=== PATIENT | female | born 1990 | race Caucasian/White ===

== ENCOUNTER 2016-11-28 08:00 | Inpatient (IN) ==
[2016-11-28 09:08] LABS: Basophils % 0.2 %; Eosinophils # 0.1 K/mcL (0.0-0.6); Eosinophils % 0.6 %; Hematocrit 39.3 % (35.3-44.9); Hemoglobin 12.9 g/dL (11.5-15.4); Immature Granulocytes % 0.7 % (0-4); Lymphocytes # 2.3 K/mcL (0.6-4.6); Lymphocytes % 19.1 %; Mean Corpuscular HGB Conc 32.8 g/dL (31.6-35.5); Mean Corpuscular Hemoglobin 29.7 pg (28.0-33.3); Mean Corpuscular Volume 90.3 fL (83.0-100.0); Mean Platelet Volume 10.2 fL (9.4-12.4); Monocytes # 0.8 K/mcL (0.0-1.3); Monocytes % 6.4 %; Platelet Count 334 K/mcL (140-400); Red Blood Count 4.35 M/mcL (3.82-4.97); Red Cell Distribution Width 13.3 % (11.5-14.5)
[2016-11-28] MEDS ORDERED: Ringers Solution, Lactated 1,000 ML ONE (09:21)
[2016-11-28] MEDS ORDERED: Naloxone 0.4 MG/ML INJ IVP PRN (09:21)
[2016-11-28] MEDS ORDERED: Famotidine 20 MG/2 ML VIAL IVP PRN (09:21)
[2016-11-28] MEDS ORDERED: Ondansetron 4 MG/2 ML VIAL IVP PRN (09:21)
[2016-11-28] MEDS ORDERED: Ringers Solution, Lactated 1,000 ML IVC SCH (09:30)
[2016-11-28] MEDS ORDERED: miSOPROStol 100 MCG TABLET PO SCH (09:45)
--- NOTE | 2016-11-28 10:54 | Anesthesia Evaluation PreOp ---
Date of Encounter: 11/28/16 Time of Encounter: 10:52 - Past History Planned Operation: INES Cardiac History: Denies any Significant Hx Pulmonary History: Denies Any Significant HX POLISHER EYEGLASS FRAMES History: Denies Any Significant HX Other Medical History: Denies Any Significant HX Anesthesia History: No Prior Anesthetic Complications (no complications w/ previous INES; never had any procedure general anesthesia; denies family h/o anesthesia complications) : Yes Test: Positive Alcohol Use: none Drug use: none Medications and Allergies Vitamins 1 tab PO DAILY 11/28/16 [History] Allergies No Known Allergies Allergy (Verified 11/28/16 08:49) - Meds/Allergy Pre-op Review Medications Reviewed: Yes Allergies Reviewed: Yes Beta Blockers on Current Med List: No Anesthesia Results - Labs 11/28/16 08:37 Anesthesia Exam 132/82, HR 88 Height: 1.65m Weight: 91kg NPO (# of Hours): solids NPO since 0700 Pain Scale: 0 Pain Scale Used: Numeric (1 - 10) - HEENT Pupil (Motor): Pupils equal Mallampati: II Teeth: Normal Oral Opening: Greater than 3 - POLISHER EYEGLASS FRAMES LOC: Oriented POLISHER EYEGLASS FRAMES Motor: Normal RUE, Normal LUE, Normal RLE, Normal LLE, Normal Face POLISHER EYEGLASS FRAMES Sensory: Normal: RUE, LUE, RLE, LLE, Face - Cardiac Rhythm: Regular Murmur: None - Pulmonary Breath Sounds: bilateral Clear Respiratory Effort: Symmetrical Anesthesia Assess/Plan ASA Score: 2 Modified Sally Scale for Level of Consciousness: Cooperative, oriented, and tranquil Anesthetic Plan: Regional Autologous Blood: No Monitoring Plan: Standard Monitors Recovery Plan: Other
[2016-11-28] MEDS ORDERED: Epidural Premix (fent/bupiv) 110 ML EP ONE (12:21)
[2016-11-28] MEDS ORDERED: Bupivacaine-MPF 0.25% 10 ML VIAL ONE (12:21)
[2016-11-28] MEDS ORDERED: *HR* FentaNYL (PF) 100 MCG/2 ML VIAL ONE (12:21)
--- NOTE | 2016-11-28 12:52 | Anesthesia Procedures ---
Date of Encounter: 11/28/16 Time of Encounter: 12:50 Procedures: Anesthesia - Epidural/Spinal Patient ID/Chart reviewed: Yes Patient examined: Yes OB Eval: Gestational age: 39 weeks 1 day OB Eval: : 2 OB Eval: Hx Para: 1 OB Eval: Dilated at (cm): 5 OB Eval: Contractions: Non-stressed pattern Consent Obtained: Yes Supplemental Oxygen: None/Room Air Site Prep: Aseptic Technique, Sterile prep and drape, Povidone-Iodine 1% Patient position: upright Local Anesthetic: Lidocaine 1% Amount of Local Anesthetic used: 3 Touhy Needle Gauge: 18 Touhy Needle Depth (cm): 5 Catheter Depth at Skin (cm): 12 (placed at 1234) Test Dose (1.5% Lido + Epi): Volume given (mls): 5 (given in 2 equally divided doses over a period of 5 min) Test Dose Result: Negative Loading Dose: 0.25% Marcaine (mls): 3 Loading Dose: Fentanyl (mcg): 100 Loading Dose Administered: Thru Catheter Infusion Med: 0.125% Bupivacaine w/ 2 mcg/ml Fentanyl Infusion Rate (mls/hr): 12 (demand bolus of 4mL q20min PRN) Catheter Secured in Place: Tegaderm Interspace Used: L3-L4 Loss of Resistance (PENNY): Yes Blood: No CSF: No Paresthesia: No Vitals + FHT's: 3 Vital Signs Time 1228 1232 1235 1238 1241 1244 BP 143/95 143/96 146/82 127/89 136/90 135/81 Pulse 100 93 84 99 93 91 FHTs
[2016-11-28] MEDS ORDERED: EPHEDrine 50 MG/ML VIAL ONE (14:22)
[2016-11-28] MEDS ORDERED: *HR* Phenylephrine 10 MG/ML VIAL ONE (14:23)
--- NOTE | 2016-11-28 14:40 | OB Labor Progress Note ---
Date of Encounter: 11/28/16 Time of Encounter: 14:43 Labor Progress Note - Subjective Subjective: Pt comfortable with epidural. New onset dizziness and nausea, low SBP given 5mg ephedirine by RN. Pt reports improvement of symptoms - Cervix Cervix: 6/80/-1/vtx/clear fluid - Heart Tones Heart Tones: 145/moderate/accels/variable decels Cat II - [place]: 1-3 minute, IUPC placed - Interventions Interventions: AROM for small amount of clear fluid, IUPC placed - Plan Plan: Continue with current management, anticipate ,
[2016-11-28] MEDS ORDERED: EPHEDrine 50 MG/ML VIAL IVP ONE (14:47)
--- NOTE | 2016-11-28 14:49 | OB/GYN History & Physical ---
Date of Encounter: 11/28/16 Time of Encounter: 14:44 Assessment and Plan (1) 39 weeks gestation of Current visit: Yes Status: Acute (2) Elective induction of labor planned Current visit: Yes Status: Acute Admit for induction of labor with cytotec and AROM. GBS negative, pt has received epidural, IUPC placement, Anticipate History of Present Illness Chief complaint: Here for induction of labor HPI: Ms. Gayle is a 26 year old female here for elective IOL wtih cytotec, unremarkable course, reports feels well with good movement, LABS: A+, Rubella immune, serology and GBS negative Past Med Surg Social Fam HX - Past Medical History Medical history: no medical history Psychiatric history: no psych history - Past Surgical History Surgical History: no surgical history - Social History Smoking Status: Never smoker Alcohol use: none Drug use: none - Family History Brother Hx Family Neurologic Disorders: Yes (epilepsy) Obstetrical History - Pregnancies : 2 Para: 1 Term: 1 : 0 Ab's: 0 Livin Medications and Allergies Vitamins 1 tab PO DAILY 11/28/16 [History] Allergies No Known Allergies Allergy (Verified 11/28/16 08:49) Review of System OB All systems PM: reviewed and no additional remarkable complaints except as stated Exam - Constitutional Constitutional: well developed, well nourished, no acute distress, average body habitus - Lungs Respiratory exam: CTAB - Cardiovascular Cardiovascular exam: RRR, +S1, +S2 - Abdomen Abdomen: Present: gravid, non tender - Extremities Extremities exam: normal inspection - Vulva Vulva: bilateral: normal - Cervix Dilation: 6 Effacement: 80 Station: -1 - Uterus Uterus exam: Present: normal size, normal contour - Anus/Rectum Anus/Rectum: Present: normal perianal skin Results Result Diagrams: 11/28/16 08:37 Abnormal lab results WBC 12.3 K/mcL (4.3-11.1) H 11/28/16 08:37 Neutrophils # 9.0 K/mcL (1.6-8.9) H 11/28/16 08:37 All other labs normal. - VTE Reasons for not Prescribing Prophylaxis: Treatment not Indicated - Low risk for VTE
[2016-11-28] MEDS ORDERED: Oxytocin 20 units/ LR 1000 mL 20 UNIT/1,000 ML BAG IVC SCH (15:00)
--- NOTE | 2016-11-28 16:28 | OB Labor Progress Note ---
Date of Encounter: 11/28/16 Time of Encounter: 16:28 Labor Progress Note - Subjective Subjective: Pt resting comfortably with epidural - Cervix Cervix: 8/100/0/clear fluid slight bloody show - Heart Tones Heart Tones: 125/moderate/+accels/Variables and lates - [place]: adequate ctx pattern - Plan Plan: continue current plan, reposition frequently, anticipate
--- NOTE | 2016-11-28 17:30 | OB/GYN Procedure Note ---
Delivery - Delivery Date: 11/28/16 Provider: Elida Herrmann ([facility]) Intrapartum events: meconium Delivery induction: AROM, oxytocin, misoprostol Delivery monitor: external FHT, external uterine, internal uterine Anesthesia: epidural Estimated Blood Loss: 150 - Infant (s) Infant A Delivery Date: 11/28/16 Delivery Time: 17:14 Presentation: vertex Position: OA Route of delivery: Gender: Male Viability: Viable Pounds: 8 Ounces: 11 Weight Gram: 3940 kg at 1 minute: 8 at 5 mins: 9 Shoulder Dystocia: not encountered Placenta: spontaneous Cord: nuchal cord, delivered through nuchal - Repair Episiotomy: none Laceration Description: Perineal - 1st Degree (hemostatic no repaired) - Complications Delivery complications: none Delivery comments: Maternal pressure and bearing down to of liveborn male. OA to LOT shoulders delivered easily, nuchal cord noted and infant somersaulted though cord. Infant to maternal abdomen stimulated with vigerous cry APGARS 8/9. 1st dgree perineal laceration hemostatic and not repaired. Placenta with spontaneous delivery intact. Fundus firm. EBL 150. Dr Herrmann supervised entire delivery. - Disposition Mom disposition: stable in LDR disposition: stable in LDR
[2016-11-28] MEDS ORDERED: Measles/Mumps/Rubella Vacc 0.5 ML VIAL SQ PRN (19:10)
[2016-11-28] MEDS ORDERED: Oxytocin 20 units/ LR 1000 mL 20 UNIT/1,000 ML BAG IVC ONE (19:10)
[2016-11-28] MEDS ORDERED: Acetaminophen 325 MG TABLET PO PRN (19:10)
[2016-11-28] MEDS ORDERED: Oxytocin 20 units/ LR 1000 mL 20 UNIT/1,000 ML BAG IV SCH (19:10)
[2016-11-28] MEDS: Ibuprofen 600 MG TABLET PO PRN (22:12)
[2016-11-29] MEDS: Ibuprofen 600 MG TABLET PO PRN (08:45)
[2016-11-29] MEDS ORDERED: Prenatal Vit/FA 1 EACH TABLET PO SCH (09:00)
--- NOTE | 2016-11-29 09:48 | Discharge Summary ---
Date of Encounter: 11/29/16 Time of Encounter: 09:48 - Discharge Diagnosis (1) 39 weeks gestation of Priority: Primary Status: Acute (2) Elective induction of labor planned Priority: Secondary Status: Acute - Discharge Medications Prescriptions: Ibuprofen [Motrin] 600 mg PO Q6HR PRN #60 tablet PRN Reason: Cramping Docusate [Colace] 100 mg PO BID #60 capsule Home Medications: Vitamins 1 tab PO DAILY 11/28/16 [History] Acetaminophen [Tylenol] 650 mg PO Q6HR PRN #0 tablet 11/29/16 [Rx] Docusate [Colace] 100 mg PO BID #60 capsule 11/29/16 [Rx] Ferrous Sulfate 325 mg PO DAILY tablet 11/29/16 [Rx] Ibuprofen [Motrin] 600 mg PO Q6HR PRN #60 tablet 11/29/16 [Rx] Allergies/Adverse Reactions: Allergies No Known Allergies Allergy (Verified 11/28/16 08:49) Data Procedures and tests throughout hospitalization: Laboratory Tests 11/28/16 08:37 WBC 12.3 H RBC 4.35 Hgb 12.9 Hct 39.3 MCV 90.3 MCH 29.7 MCHC 32.8 RDW 13.3 Plt Count 334 MPV 10.2 Immature Gran % 0.7 Seg Neutrophils % 73.0 Lymphocytes % 19.1 Monocytes % 6.4 Eosinophils % 0.6 Basophils % 0.2 Neutrophils # 9.0 H Lymphocytes # 2.3 Monocytes # 0.8 Eosinophils # 0.1 Basophils # 0.0 Date of admission: 11/28/16 08:15 Primary care physician: PCP NO Consults: 11/28/16 19:10 Consult to Control Systems Specialist [CONS] Routine Comment: Vaginal delivery, consult needed Discharging clinician: Vandana Weiner Anticipated date of discharge: 11/29/16 - Patient Status Disposition: Home, Self-Care Condition: Good Functional capacity at discharge: independent ambulation Overall status at discharge: patient is back to baseline - Discharge Instructions Follow Up With: JULIET,PCP [Primary Care Provider] - Elida Herrmann DO [Partnered Physician] - - Diet and Activity Activity: resume usual activities as tolerated Diet: regular diet Hospital Course Reason for admission: induction of labor, IUP at term Delivery: Episiotomy: none Laceration: 1st degree Other procedures: none complications: none Discharge diagnosis: IUP at term delivered [place] baby: male Hospital course: Delivery - Delivery Date: 11/28/16 Provider: Elida Herrmann ([facility]) Intrapartum events: meconium Delivery induction: AROM, oxytocin, misoprostol Delivery monitor: external FHT, external uterine, internal uterine Anesthesia: epidural Estimated Blood Loss: 150 - (s) A Infant Delivery Date: 11/28/16 Delivery Time: 17:14 Presentation: vertex Position: OA Route of delivery: Gender: Male Viability: Viable Pounds: 8 Ounces: 11 Weight Gram: 3940 kg at 1 minute: 8 at 5 mins: 9 Shoulder Dystocia: not encountered Placenta: spontaneous Cord: nuchal cord, delivered through nuchal - Repair Episiotomy: none Laceration Description: Perineal - 1st Degree (hemostatic no repaired) - Complications Delivery complications: none Delivery comments: Maternal pressure and bearing down to of liveborn male. OA to LOT shoulders delivered easily, nuchal cord noted and somersaulted though cord. Infant to maternal abdomen stimulated with vigerous cry APGARS 8/9. 1st dgree perineal laceration hemostatic and not repaired. Placenta with spontaneous delivery intact. Fundus firm. EBL 150. Dr Herrmann supervised entire delivery. - Disposition Mom disposition: home PPD#1 [place] disposition: home with mother PPD#1 Remain in stable condition. Appropriate for discharge Time Attestation: Total time spent providing and/or coordinating discharge services: Time Spent: Less than 30 minutes Exam - Constitutional Vitals: Temp Pulse Resp BP Pulse Ox 98.2 F 85 16 105/69 98 11/29/16 08:27 11/29/16 08:27 11/29/16 08:27 11/29/16 08:27 11/28/16 21:40 General appearance IM: A&O X 3 - Respiratory Respiratory exam: Present: CTAB - Cardiovascular Cardiovascular exam IM: Present: RRR, +S1, +S2 - GI/Abdominal GI/Abdominal exam IM: soft - Uterine Tone: Firm - Extremities Exam Extremities exam IM: Present: normal inspection - Neurological Exam Neurological exam: normal gait, oriented X3 - Psychiatric Additional comments: reports good mood
[2016-11-29 18:05] VITALS: BP 122/75
== END 2016-11-29 18:07 | disposition home or self-care (01) | DRG 775 ==
LOC: 1NENULAB 08:15 → 1NENUOBS 20:50
PROVIDERS: ADMIT Obstetrics & Gynecology; ATTEND Obstetrics & Gynecology